=== PATIENT | female | born 1960 | race Caucasian/White ===

== ENCOUNTER 2018-03-31 05:59 | Emergency (ER) | payer BC ==
[2018-03-31 07:41] LABS: Absolute Lymphocytes (CBC) 0.8 K/uL (0.7-4.9); Absolute Monocytes 0.5 K/uL (0.1-1.3); Absolute Neutrophil 7.3 K/uL (1.8-8.0); Basophils % 0.4 % (0-1.3); Eosinophils % 0.5 % (0-4.4); Hematocrit 48.4 % (36.0-45.0); Lymphocytes % 9.2 % (15.3-44.8); MCH 28.8 pg (27.0-35.0); MCV 86.4 fL (80-100); MPV 9.4 fL (7.6-11.3); Monocytes % 5.9 % (3.3-12.3)
[2018-03-31] MEDS ORDERED: PROMETHAZINE 25 MG/ML VIAL ONE (07:45)
[2018-03-31] MEDS ORDERED: NA CHLORIDE 0.9% 1,000 ML ONE (07:45)
[2018-03-31 07:57] LABS: Albumin 3.9 g/dL (3.4-5.0); Bilirubin Direct 0.2 mg/dL (0-0.2); Bilirubin Total 0.6 mg/dL (0.2-1.0); Magnesium 2.1 mg/dL (1.8-2.4); Potassium 3.4 mmol/L (3.5-5.1); Protein, Total 7.6 g/dL (6.4-8.2)
[2018-03-31 08:11] LABS: Urine Blood 2+ (NEG); Urine Glucose 2+ (NEG); Urine Protein NEGATIVE (NEG); Urine pH 5.5 (5.0-7.0)
--- NOTE | 2018-03-31 09:30 | ER ---
Nurse's Notes [facility] Name: Yamile Laughlin Age: 58 yrs Sex: Female : 1960 Arrival Date: 03/31/2018 Time: 05:59 Bed 20 Private MD: Brittany Castro Diagnosis: Gastroenteritis Presentation: 03/31 06:16 Presenting complaint: Patient states: "I had teeth pulled on and ever since jd3 that Saturday after I have been having diarrhea, vomiting, and feeling very weak.". Transition of care: patient was not received from another setting of care. Onset of symptoms was March 28, 2018. Risk Assessment: Do you want to hurt yourself or someone else? Patient reports no desire to harm self or others. Initial Sepsis Screen: Does the patient meet any 2 criteria? No. Patient's initial sepsis screen is negative. Does the patient have a suspected source of infection? No. Patient's initial sepsis screen is negative. Care prior to arrival: Medication(s) given: Imodium at 0400. 06:16 Method Of Arrival: Wheelchair jd3 06:16 Acuity: NAVEEN 3 jd3 Historical: - Allergies: 06:25 Erythromycin; jd3 - Home Meds: 06:25 Jardiance oral oral [Active]; Metoprolol Tartrate Oral [Active]; jd3 - PMHx: 06:25 Diabetes - NIDDM; Hypertension; jd3 - PSHx: 06:25 Appendectomy; Cholecystectomy; ; Tonsillectomy; Hysterectomy; jd3 - Immunization history:: Adult Immunizations up to date, Flu vaccine is not up to date. - Social history:: Smoking status: Patient/guardian denies using tobacco. - Ebola Screening: : Patient negative for fever greater than or equal to 101.5 degrees Fahrenheit, and additional compatible Ebola Virus Disease symptoms. Screenin:29 Abuse screen: Denies threats or abuse. Nutritional screening: No deficits noted. jd3 Tuberculosis screening: No symptoms or risk factors identified. Fall Risk Ambulatory Aid- None/Bed Rest/Nurse Assist (0 pts). Gait- Weak (10 pts.). Mental Status- Oriented to own ability (0 pts). Total Soares Fall Scale indicates No Risk (0-24 pts). Assessment: 06:26 General: Appears in no apparent distress. uncomfortable, Behavior is calm, cooperative, jd3 appropriate for age. Pain: Denies pain. Neuro: Level of Consciousness is awake, alert, obeys commands, Oriented to person, place, time, situation, Appropriate for age Reports weakness. Cardiovascular: Capillary refill < 3 seconds Patient's skin is warm and dry. Respiratory: Airway is patent Respiratory effort is even, unlabored, Respiratory pattern is regular, symmetrical, Denies shortness of breath. GI: Abdomen is round non-distended, Last BM at 05:15. Bowel sounds present X 4 quads. Abd is soft Abdomen is tender to palpation in left upper quadrant Reports diarrhea, nausea, vomiting. : No signs and/or symptoms were reported regarding the genitourinary system. EENT: No signs and/or symptoms were reported regarding the EENT system. Derm: Skin is intact, Skin is dry, Skin is normal, Skin temperature is warm. Musculoskeletal: Circulation, motion, and sensation intact. Range of motion: intact in all extremities. 07:46 Reassessment: Patient appears in no apparent distress at this time. Patient and/or ch family updated on plan of care and expected duration. Pain level reassessed. Patient is alert, oriented x 3, equal unlabored respirations, skin warm/dry/pink. Patient states feeling better. Patient states symptoms have improved. General: Appears in no apparent distress. comfortable, Behavior is calm, cooperative, appropriate for age. Neuro: No deficits noted. Neuro: Reports dizziness, weakness. Respiratory: No deficits noted. Respiratory: Airway is patent Respiratory effort is even, unlabored, Breath sounds are clear bilaterally. 09:40 Reassessment: Patient appears in no apparent distress at this time. Patient and/or ch family updated on plan of care and expected duration. Pain level reassessed. Patient is alert, oriented x 3, equal unlabored respirations, skin warm/dry/pink. Patient states feeling better. Patient states symptoms have improved. Vital Signs: 06:26 BP 121 / 66; Pulse 81; Resp 17 S; Temp 98.3(O); Pulse Ox 97% on R/A; Weight 85.28 kg jd3 (R); Height 5 ft. 6 in. (167.64 cm) (R); Pain 0/10; 07:46 BP 109 / 67; Pulse 74; Resp 16; Temp 98.2; Pulse Ox 99% on R/A; Pain 0/10; ch 08:30 BP 111 / 74; Pulse 54; Resp 17; Pulse Ox 98% on R/A; dh3 09:29 BP 110 / 63; Pulse 56; Resp 18; Pulse Ox 97% on R/A; dh3 06:26 Body Mass Index 30.34 (85.28 kg, 167.64 cm) jd3 ED Course: 05:59 Patient arrived in ED. am2 06:00 Brittany Castro FNP-C is Private Physician. am2 06:12 [facility] jr8 06:12 Dheeraj Guardado MD is Attending Physician. jr8 06:16 Bulmaro Diamond, RN is Primary Nurse. jd3 06:18 Triage completed. jd3 06:26 Arm band placed on. jd3 06:29 Patient has correct armband on for positive identification. Bed in low position. Call j light in reach. Side rails up X 1. Adult w/ patient. 07:00 Report given to Ynes PRIETO. jd3 07:15 Initial lab(s) drawn, by ak, sent to lab. Inserted saline lock: 20 gauge in right 3 antecubital area, using aseptic technique. Blood collected. 07:44 Primary Nurse role handed off by Bulmaro Diamond, CONNER ch 07:44 Ynes Morales, CONNER is Primary Nurse. ch 07:46 Warm blanket given. ch 07:46 No provider procedures requiring assistance completed. ch 09:45 IV discontinued, intact, bleeding controlled, No redness/swelling at site. Pressure ch dressing applied. Administered Medications: 07:45 Drug: Phenergan 12.5 mg {Note: mixed in 1000mL ns bag.} Route: IVP; Infused Over: 20 ch mins; Site: right antecubital; 09:00 Follow up: Response: No adverse reaction; Marked relief of symptoms ch 07:46 Drug: NS 0.9% 1000 ml Route: IV; Rate: 1000 ml; Site: right antecubital; ch 09:00 Follow up: IV Status: Completed infusion; IV Intake: 1000ml ch Intake: 09:00 IV: 1000ml; Total: 1000ml. ch Outcome: :30 Discharge ordered by . jr8 09:45 Discharged to home ambulatory, with family. ch 09:45 Condition: improved 09:45 Discharge instructions given to patient, family, Instructed on discharge instructions, follow up and referral plans. medication usage, Demonstrated understanding of instructions, follow-up care, medications, Prescriptions given X 1. 09:55 Patient left the ED. Signatures: Ynes Morales, RN RN Edmundo Broussard PA PA 8 Hannah Langford on license of [facility] Jo-Ann Cope 3 Bulmaro Diamond RN RN jd3 Corrections: (The following items were deleted from the chart) 06:29 06:26 GI: Abdomen is round non-distended, Bowel sounds present X 4 quads. Abd is soft jd3 Abdomen is tender to palpation in left upper quadrant Reports diarrhea, nausea, vomiting, jd3 07:46 07:45 NS 0.9% 1000 ml IV at 1000 ml in left antecubital [facility]
--- NOTE | 2018-03-31 09:30 | EDPHYS ---
Physician Documentation [facility] Name: Yamile Laughlin Age: 58 yrs Sex: Female : 1960 Arrival Date: 03/31/2018 Time: 05:59 Bed 20 Private MD: Brittany Castro ED Physician Dheeraj Guardado HPI: 03/31 07:21 This 58 yrs old Female presents to ER via Wheelchair with complaints of jr8 General Weakness. 07:21 The patient presents to the emergency department with nausea, vomiting, diarrhea. jr8 Onset: The symptoms/episode began/occurred gradually, 4 day(s) ago. Possible causes: unknown. The symptoms are aggravated by food , The symptoms are alleviated by nothing. Associated signs and symptoms: Pertinent positives: near syncope feeling . Severity of symptoms: At their worst the symptoms were moderate in the emergency department the symptoms are unchanged. The patient has not experienced similar symptoms in the past. The patient has not recently seen a physician. Patient stated that she recently had dental work done and was on amoxicillin. Stated that for the past few days has had n/v/d. Had stopped but now has come back. Feels generally weak and wants to pass out. Has not had true syncopal episode . Historical: - Allergies: 06:25 Erythromycin; jd3 - Home Meds: 06:25 Jardiance oral oral [Active]; Metoprolol Tartrate Oral [Active]; jd3 - PMHx: 06:25 Diabetes - NIDDM; Hypertension; jd3 - PSHx: 06:25 Appendectomy; Cholecystectomy; ; Tonsillectomy; Hysterectomy; jd3 - Immunization history:: Adult Immunizations up to date, Flu vaccine is not up to date. - Social history:: Smoking status: Patient/guardian denies using tobacco. - Ebola Screening: : Patient negative for fever greater than or equal to 101.5 degrees Fahrenheit, and additional compatible Ebola Virus Disease symptoms. ROS: 07:21 Eyes: Negative for injury, pain, redness, and discharge, ENT: Negative for injury, jr8 pain, and discharge, Neck: Negative for injury, pain, and swelling, Cardiovascular: Negative for chest pain, palpitations, and edema, Respiratory: Negative for shortness of breath, cough, wheezing, and pleuritic chest pain, Back: Negative for injury and pain, MS/Extremity: Negative for injury and deformity, Skin: Negative for injury, rash, and discoloration. 07:21 Abdomen/GI: Positive for nausea, vomiting, and diarrhea, abdominal cramps, Negative for abdominal pain, abdominal distension, anorexia, dysphagia, hematemesis, black/tarry stool, rectal pain, rectal bleeding, bowel incontinence, flatulence. 07:21 Neuro: Positive for near syncope, Negative for altered mental status, dizziness, gait disturbance, headache, loss of consciousness, seizure activity, syncope. Exam: 07:21 Eyes: Pupils equal round and reactive to light, extra-ocular motions intact. Lids and jr8 lashes normal. Conjunctiva and sclera are non-icteric and not injected. Cornea within normal limits. Periorbital areas with no swelling, redness, or edema. ENT: Nares patent. No nasal discharge, no septal abnormalities noted. Tympanic membranes are normal and external auditory canals are clear. Oropharynx with no redness, swelling, or masses, exudates, or evidence of obstruction, uvula midline. Mucous membranes moist. Neck: Trachea midline, no thyromegaly or masses palpated, and no cervical lymphadenopathy. Supple, full range of motion without nuchal rigidity, or vertebral point tenderness. No Meningismus. Cardiovascular: Regular rate and rhythm with a normal S1 and S2. No gallops, murmurs, or rubs. Normal PMI, no JVD. No pulse deficits. Respiratory: Lungs have equal breath sounds bilaterally, clear to auscultation and percussion. No rales, rhonchi or wheezes noted. No increased work of breathing, no retractions or nasal flaring. Abdomen/GI: Soft, non-tender, with normal bowel sounds. No distension or tympany. No guarding or rebound. No evidence of tenderness throughout. Back: No spinal tenderness. No costovertebral tenderness. Full range of motion. Skin: Warm, dry with normal turgor. Normal color with no rashes, no lesions, and no evidence of cellulitis. MS/ Extremity: Pulses equal, no cyanosis. Neurovascular intact. Full, normal range of motion. Neuro: Awake and alert, GCS 15, oriented to person, place, time, and situation. Cranial nerves II-XII grossly intact. Motor strength 5/5 in all extremities. Sensory grossly intact. Cerebellar exam normal. Normal gait. Vital Signs: 06:26 BP 121 / 66; Pulse 81; Resp 17 S; Temp 98.3(O); Pulse Ox 97% on R/A; Weight 85.28 kg jd3 (R); Height 5 ft. 6 in. (167.64 cm) (R); Pain 0/10; 07:46 BP 109 / 67; Pulse 74; Resp 16; Temp 98.2; Pulse Ox 99% on R/A; Pain 0/10; ch 08:30 BP 111 / 74; Pulse 54; Resp 17; Pulse Ox 98% on R/A; dh3 09:29 BP 110 / 63; Pulse 56; Resp 18; Pulse Ox 97% on R/A; dh3 06:26 Body Mass Index 30.34 (85.28 kg, 167.64 cm) jd3 MDM: 06:12 Patient medically screened. 8 09:29 Differential diagnosis: gastritis, pancreatitis, viral gastroenteritis, jr8 gastroenteritis. Data reviewed: vital signs, nurses notes, lab test result(s). Data interpreted: Pulse oximetry: on room air is 99 %. Interpretation: normal. Counseling: I had a detailed discussion with the patient and/or guardian regarding: the historical points, exam findings, and any diagnostic results supporting the discharge/admit diagnosis, lab results, the need for outpatient follow up, a family practitioner, a invoice control clerk, to return to the emergency department if symptoms worsen or persist or if there are any questions or concerns that arise at home. Response to treatment: the patient's symptoms have markedly improved after treatment, patient is well hydrated. ED course: No longer feels like she wants to pass out. Nausea controlled. No pain . 03/31 06:29 Order name: Urine Dipstick--Ancillary (enter results); Complete Time: 08:41 ms 03/31 06:29 Order name: Urine --Ancillary (enter results); Complete Time: 08:41 ms 03/31 06:56 Order name: Basic Metabolic Panel [facility] 03/31 06:56 Order name: CBC with Diff 03/31 06:56 Order name: Creatinine for Radiology [facility] 03/31 06:56 Order name: Hepatic Function; Complete Time: 07:59 [facility] 03/31 06:56 Order name: Lipase; Complete Time: 07:59 [facility] 03/31 06:56 Order name: IV Saline Lock; Complete Time: 07:18 jr8 03/31 06:56 Order name: Magnesium; Complete Time: 07:59 jr8 03/31 06:57 Order name: Basic Metabolic Panel; Complete Time: 07:59 EDMS 03/31 06:57 Order name: CBC with Automated Diff; Complete Time: 07:45 EDMS 03/31 06:57 Order name: Creatinine (Radiology Only); Complete Time: 07:59 EDMS 03/31 06:56 Order name: Labs collected and sent; Complete Time: 07:17 jr8 03/31 06:56 Order name: Urine Dipstick-Ancillary (obtain specimen); Complete Time: 07:06 jr8 Administered Medications: 07:45 Drug: Phenergan 12.5 mg {Note: mixed in 1000mL ns bag.} Route: IVP; Infused Over: 20 ch mins; Site: right antecubital; 09:00 Follow up: Response: No adverse reaction; Marked relief of symptoms 07:46 Drug: NS 0.9% 1000 ml Route: IV; Rate: 1000 ml; Site: right antecubital; 09:00 Follow up: IV Status: Completed infusion; IV Intake: 1000ml ch Disposition: 03/31/18 09:30 Discharged to Home. Impression: Gastroenteritis. - Condition is Stable. - Discharge Instructions: Dehydration, Adult, Viral Gastroenteritis, Adult, Rehydration, Adult. - Prescriptions for promethazine 25 mg Oral Tablet - take 1 tablet by ORAL route every 6 hours As needed; 20 tablet. - Medication Reconciliation Form, Thank You Letter, Antibiotic Education, Prescription Opioid Use form. - Work release form (03/31/18 09:58). ss - Follow up: Private Physician; When: 1 - 2 days; Reason: Recheck today's complaints, Continuance of care, Re-evaluation by your physician. - Problem is new. - Symptoms have improved. Signatures: Dispatcher [employer] EDYnes Raymundo RN RN Edmundo Broussard PA PA jr8 Davies, Jonathon, RN RN jd3 Smirch, Shelby RN ss Corrections: (The following items were deleted from the chart) 09:55 09:30 03/31/2018 09:30 Discharged to Home. Impression: Gastroenteritis. Condition is ch Stable. Forms are Medication Reconciliation Form, Thank You Letter, Antibiotic Education, Prescription Opioid Use. Follow up: Private Physician; When: 1 - 2 days; Reason: Recheck today's complaints, Continuance of care, Re-evaluation by your physician. Problem is new. Symptoms have improved. jr8
== END 2018-03-31 09:55 | disposition home or self-care (01) ==
LOC: ER 05:59
DX: K52.9 Noninfective gastroenteritis and colitis, unspecified (principal); I10 Essential (primary) hypertension; E11.9 Type 2 diabetes mellitus without complications
CPT/HCPCS: 36415; 80048; 80076; 81003; 81025; 83690; 83735; 85025; 96361; 96374; 99284; J2550; J7030

== ENCOUNTER 2021-09-02 18:49 | Emergency (ER) | payer BC ==
--- OUTSIDE RECORDS SUMMARY | 2021-09-02 18:51 | XMS REPORT | Continuity of Care Document ---
:1960 Author Organization [facility] t Address [address] [place] [address] Dr. Brian. [address] [place] [id number] Care Team Providers Name Role Phone [place] Attending Clinician Unavailable Problems This patient has no known problems. Allergies, Adverse Reactions, Alerts This patient has no known allergies or adverse reactions. Medications This patient has no known medications. Procedures This patient has no known procedures. Encounters Start End Encounter Admission Attending Care Care Encounter Source Date/Time Date/Time Type Type Clinicians Facility Department ID 2021-07-26 Outpatient Matthew, [facility]LML[facility] [id number] [facility] 08[facility]43:03 [facility] 2021-08-29 2021-08-29 ambulatory [facility] [id number] [facility] 2021-08-18 2021-08-18 ambulatory [facility] [id number] [facility] 2021-08-17 2021-08-17 ambulatory [facility] [id number] [facility] 2021-07-26 2021-07-26 ambulatory [facility] [id number] [facility] Results This patient has no known results.
[2021-09-02] MEDS ORDERED: CYCLOBENZAPRINE 10 MG TAB ONE (19:12)
[2021-09-02] MEDS ORDERED: HYDROCODONE/APAP 10/325 TAB ONE (19:13)
[2021-09-02] MEDS ORDERED: LIDOCAINE 4% PATCH ONE (19:14)
--- NOTE | 2021-09-02 20:43 | RAD REPORT ---
EXAM DESCRIPTION: RAD - Lumbar Spine 3 Views - 09/02/2021 8:09 pm CLINICAL HISTORY: RADICULOPATHY COMPARISON: <Comparisons> FINDINGS: A three-view lumbar spine examination was performed. Lumbar bodies are normal in height. There is straightening of the usual lumbar lordosis. A slight rig ht lateral subluxation of L4 on L5 noted. L4-5 disc space narrowing seen with endplate spurring. L5-S 1 disc space is also narrowed. Mild endplate spurs seen at L3-4. No fracture or acute bony process se en. Moderately prominent facet degenerative change seen L2-S1. No pars defects identified. IMPRESSION: Lumbar spine degenerative changes are present most notable at L4-5. No acute finding identified. Concerns for disc herniation, central canal abnormality or occult bone process can be addressed with MR imaging.
--- NOTE | 2021-09-02 21:05 | ER ---
Nurse's Notes [facility] Name: Yamile Laughlin Age: 61 yrs Sex: Female : 1960 Arrival Date: 09/02/2021 Time: 18:50 Bed 4 Private MD: Brittany Castro Diagnosis: Lumbago with sciatica, right side Presentation: 09/02 19:03 Chief complaint: Patient states: low back pain that radiates to R groin, all the way ss down leg. HX of sciatica. Coronavirus screen: Client denies travel out of the [place] in the last 14 days. Ebola Screen: Patient denies exposure to infectious person. Patient denies travel to an Ebola-affected area in the 21 days before illness onset. Initial Sepsis Screen: Does the patient meet any 2 criteria? No. Patient's initial sepsis screen is negative. Does the patient have a suspected source of infection?. Risk Assessment: Do you want to hurt yourself or someone else? Patient reports no desire to harm self or others. Onset of symptoms was September 01, 2021. 19:03 Method Of Arrival: Wheelchair ss 19:03 Acuity: NAVEEN 3 ss Historical: - Allergies: 19:05 Erythromycin; ss - Home Meds: 21:27 Jardiance Oral [Active]; Metoprolol Tartrate Oral [Active]; lg3 - PMHx: 19:05 Diabetes - NIDDM; Hypertension; sciatica; ss - Immunization history:: Client reports having NOT received the Covid vaccine. - Social history:: Smoking status: Patient denies any tobacco usage or history of. Screenin:22 Abuse screen: Denies threats or abuse. Denies injuries from another. Nutritional lg3 screening: No deficits noted. Tuberculosis screening: No symptoms or risk factors identified. Fall Risk None identified. Assessment: 19:22 General: Appears in no apparent distress. uncomfortable, Behavior is calm, cooperative. lg3 Pain: Complains of pain in lumbar area and right low back Pain radiates to right leg. Neuro: No deficits noted. Level of Consciousness is awake, alert, obeys commands, Oriented to person, place, time, situation. Cardiovascular: No deficits noted. Denies chest pain, shortness of breath, Capillary refill < 3 seconds Clubbing of nail beds is absent JVD is absent Patient's skin is warm and dry. Respiratory: No deficits noted. Airway is patent Trachea midline Respiratory effort is even, unlabored. GI: No deficits noted. No signs and/or symptoms were reported involving the gastrointestinal system. Abdomen is round non-distended. : No deficits noted. No signs and/or symptoms were reported regarding the genitourinary system. EENT: No deficits noted. No signs and/or symptoms were reported regarding the EENT system. Derm: No deficits noted. No signs and/or symptoms reported regarding the dermatologic system. Skin is intact, is healthy with good turgor, Skin is dry. Musculoskeletal: Circulation, motion, and sensation intact. Range of motion: intact in all extremities, Reports weakness in left leg pain in lumbar area and right low back. 21:24 Reassessment: Patient appears in no apparent distress at this time. No changes from lg3 previously documented assessment. Patient and/or family updated on plan of care and expected duration. Pain level reassessed. Patient is alert, oriented x 3, equal unlabored respirations, skin warm/dry/pink. Patient states feeling better. Patient states symptoms have improved. Vital Signs: 19:03 BP 141 / 80; Pulse 75; Resp 16; Pulse Ox 95% ; Weight 90.72 kg; Height 5 ft. 6 in. ss (167.64 cm); Pain 9/10; 19:06 Temp 98.5(O); oe 19:22 BP 122 / 73; Pulse 58; Resp 17 S; Pulse Ox 98% on R/A; lg3 20:21 BP 126 / 76; Pulse 53; Resp 16 S; Pulse Ox 99% on R/A; lg3 21:26 BP 111 / 73; Pulse 50; Resp 16; Pulse Ox 98% on R/A; lg3 19:03 Body Mass Index 32.28 (90.72 kg, 167.64 cm) ED Course: 18:50 Patient arrived in ED. am2 18:50 Brittany Castro FNP-C is Private Physician. am2 18:56 Osvaldo Garcia NP is PHCP. pm1 18:56 Aquiles Martinez MD is Attending Physician. pm1 19:05 Triage completed. ss 19:05 Arm band placed on right wrist. ss 19:21 Oliva Cárdenas, CONNER is Primary Nurse. lg3 19:22 Patient has correct armband on for positive identification. Bed in low position. Call lg3 light in reach. Side rails up X 1. Pulse ox on. NIBP on. Door closed. Noise minimized. Warm blanket given. 20:11 XRAY Lumbar Spine (3 Views) In Process Unspecified. EDMS 21:26 No provider procedures requiring assistance completed. Patient did not have IV access lg3 during this emergency room visit. Administered Medications: 19:21 Drug: [place] (HYDROcodone-acetaminophen) 10 mg-325 mg 1 tabs Route: PO; lg3 19:22 Follow up: Response: No adverse reaction; RASS: Alert and Calm (0) lg3 19:21 Drug: Flexeril (cyclobenzaprine) 10 mg Route: PO; lg3 19:21 Follow up: Response: No adverse reaction lg3 20:08 Drug: Lidoderm Patch 5 % (700 mg/patch) 1 patches Route: Topical; Site: affected area; ke1 21:13 Not Given (Physician Discretion): Valium (diazepam) 2 mg PO once pm1 21:24 Drug: Ketorolac 60 mg Route: IM; Site: left gluteus; lg3 21:24 Follow up: Response: No adverse reaction lg3 21:24 Drug: Valium (diazepam) 2.5 mg Route: PO; lg3 21:24 Follow up: Response: No adverse reaction lg3 Outcome: 21:04 Discharge ordered by MD. pm1 21:34 Discharged to home via wheelchair, with significant other. lg3 21:34 Condition: stable 21:34 Discharge instructions given to patient, Instructed on discharge instructions, follow up and referral plans. medication usage, Prescriptions given X 2. 21:42 Patient left the ED. lg3 Signatures: Dispatcher [employer] EDMS Xiomara Rosado RN RN ss Osvaldo Garcia, [employer] pm1 Guru Curran Amanda am2 Oliva Cárdenas RN RN lg3 Bertha Vigil RN RN ke1 Corrections: (The following items were deleted from the chart) 21:26 20:21 BP 126 / 76; Pulse 93bpm; Resp 16bpm; Spontaneous; Pulse Ox 99% RA; lg3 lg3
--- NOTE | 2021-09-02 21:05 | EDPHYS ---
Physician Documentation [facility] Name: Yamile Laughlin Age: 61 yrs Sex: Female : 1960 Arrival Date: 09/02/2021 Time: 18:50 Bed 4 Private MD: Brittany Castro ED Physician Aquiles Martinez HPI: 09/02 19:29 This 61 yrs old Female presents to ER via Wheelchair with complaints of Back Pain. pm1 19:29 The patient presents with pain that is acute, with no known mechanism of injury. The pm1 symptoms are located in the low back. Onset: The symptoms/episode began/occurred yesterday. The pain radiates to the right leg. Associated signs and symptoms: Pertinent negatives: dysuria, numbness, tingling, weakness. The problem was sustained History of sciatica for at least the past 10 years. Reports issue with L4-L5 in the past according to imaging greater than 10 years ago . Modifying factors: The patient symptoms are alleviated by nothing, the patient symptoms are aggravated by any movement. Severity of symptoms: in the emergency department the symptoms are actually worse. The patient has experienced similar episodes in the past, multiple times. The patient has not recently seen a physician. Historical: - Allergies: 19:05 Erythromycin; ss - Home Meds: 21:27 Jardiance Oral [Active]; Metoprolol Tartrate Oral [Active]; lg3 - PMHx: 19:05 Diabetes - NIDDM; Hypertension; sciatica; ss - Immunization history:: Client reports having NOT received the Covid vaccine. - Social history:: Smoking status: Patient denies any tobacco usage or history of. ROS: 19:29 Constitutional: Negative for fever, chills, and weight loss. pm1 19:29 Cardiovascular: Negative for chest pain, palpitations, and edema, Respiratory: Negative for shortness of breath, cough, wheezing, and pleuritic chest pain, Abdomen/GI: Negative for abdominal pain, nausea, vomiting, diarrhea, and constipation. 19:29 : Negative for injury, bleeding, discharge, and swelling, MS/Extremity: Negative for injury and deformity, Skin: Negative for injury, rash, and discoloration. 19:29 Neuro: Negative for headache, weakness, numbness, tingling, and seizure. 19:29 Back: Positive for of the right low back. 19:29 All other systems are negative. Exam: 19:29 Constitutional: This is a well developed, well nourished patient who is awake, alert, pm1 and in no acute distress. Head/Face: Normocephalic, atraumatic. 19:29 Skin: Warm, dry with normal turgor. Normal color with no rashes, no lesions, and no evidence of cellulitis. MS/ Extremity: Pulses equal, no cyanosis. Neurovascular intact. Full, normal range of motion. 19:29 Eyes: Exam is negative for acute changes, Periorbital structures: appear normal, Extraocular movements: no acute changes, Conjunctiva: no acute changes, no injection. 19:29 ENT: Exam is negative for acute changes, Mouth: no acute changes, Lips: normal, moist, Oral mucosa: normal, pink and intact, moist. 19:29 Cardiovascular: Exam negative for Rate: normal, Rhythm: regular, Pulses: no pulse deficits are appreciated. 19:29 Respiratory: Exam negative for acute changes, respiratory distress, shortness of breath. 19:29 Back: pain, that is mild, of the right low back, vertebral tenderness, is not appreciated. 19:29 Neuro: Exam negative for acute changes, Orientation: is normal, Mentation: is normal, Motor: is normal, moves all fours. Vital Signs: 19:03 BP 141 / 80; Pulse 75; Resp 16; Pulse Ox 95% ; Weight 90.72 kg; Height 5 ft. 6 in. ss (167.64 cm); Pain 9/10; 19:06 Temp 98.5(O); oe 19:22 BP 122 / 73; Pulse 58; Resp 17 S; Pulse Ox 98% on R/A; lg3 20:21 BP 126 / 76; Pulse 53; Resp 16 S; Pulse Ox 99% on R/A; lg3 21:26 BP 111 / 73; Pulse 50; Resp 16; Pulse Ox 98% on R/A; lg3 19:03 Body Mass Index 32.28 (90.72 kg, 167.64 cm) ss MDM: 18:57 Patient medically screened. pm1 19:34 Data reviewed: vital signs. Data interpreted: Pulse oximetry: on room air is 98 %. pm1 Interpretation: normal. 21:03 Counseling: I had a detailed discussion with the patient and/or guardian regarding: the pm1 historical points, exam findings, and any diagnostic results supporting the discharge/admit diagnosis, radiology results, the need for outpatient follow up, to return to the emergency department if symptoms worsen or persist or if there are any questions or concerns that arise at home. 09/02 19:02 Order name: XRAY Lumbar Spine (3 Views); Complete Time: 20:47 pm1 Administered Medications: 19:21 Drug: [place] (HYDROcodone-acetaminophen) 10 mg-325 mg 1 tabs Route: PO; lg3 19:22 Follow up: Response: No adverse reaction; RASS: Alert and Calm (0) lg3 19:21 Drug: Flexeril (cyclobenzaprine) 10 mg Route: PO; lg3 19:21 Follow up: Response: No adverse reaction lg3 20:08 Drug: Lidoderm Patch 5 % (700 mg/patch) 1 patches Route: Topical; Site: affected area; ke1 21:13 Not Given (Physician Discretion): Valium (diazepam) 2 mg PO once pm1 21:24 Drug: Ketorolac 60 mg Route: IM; Site: left gluteus; lg3 21:24 Follow up: Response: No adverse reaction lg3 21:24 Drug: Valium (diazepam) 2.5 mg Route: PO; lg3 21:24 Follow up: Response: No adverse reaction lg3 Disposition: 09/03 10:50 Co-signature as Attending Physician, Aquiles Martinez MD. rn Disposition Summary: 09/02/21 21:04 Discharge Ordered Location: Home pm1 Problem: new pm1 Symptoms: have improved pm1 Condition: Stable pm1 Diagnosis - Lumbago with sciatica, right side pm1 Followup: pm1 - With: Emergency Department - When: As needed - Reason: Worsening of condition Followup: pm1 - With: Private Physician - When: 2 - 3 days - Reason: Recheck today's complaints, Continuance of care, Re-evaluation by your physician Discharge Instructions: - Discharge Summary Sheet pm1 - Sciatica pm1 Forms: - Medication Reconciliation Form pm1 - Thank You Letter pm1 - Antibiotic Education pm1 - Prescription Opioid Use pm1 Prescriptions: - Skelaxin 800 mg Oral Tablet - take 1 tablet by ORAL route every 8 hours As needed; 30 tablet; Refills: 0, pm1 Product Selection Permitted - Tylenol-Codeine #3 300 mg-30 mg Oral - take 2 tablet by ORAL route every 6 hours As needed; 20 tablet; Refills: 0, pm1 Product Selection Permitted Signatures: Dispatcher [employer] Aquiles Forde MD MD rn Smirch, Shelby RN RN ss Osvaldo Garcai, ACCOUNTING BOOKKEEPER ACCOUNTING BOOKKEEPER pm1 Oliva Cárdenas RN RN lg3 Bertha Vigil RN RN ke1
[2021-09-02] MEDS ORDERED: DIAZEPAM 5 MG TABLET ONE (21:18)
[2021-09-02] MEDS ORDERED: KETOROLAC 30 MG/ML INJ ONE (21:19)
[2021-09-02 21:49] VITALS: TEMP 98.5
[2021-09-02 21:53] VITALS: BP 111/73; O2SAT 98
== END 2021-09-02 21:42 | disposition home or self-care (01) ==
LOC: ER 18:49
DX: M54.31 Sciatica, right side (principal); E11.9 Type 2 diabetes mellitus without complications; I10 Essential (primary) hypertension; Z88.3 Allergy status to other anti-infective agents
CPT/HCPCS: 72100; 96372; 99284

== ENCOUNTER 2022-02-12 11:57 | Emergency (ER) | payer OTHER, BC ==
--- OUTSIDE RECORDS SUMMARY | 2022-02-12 12:00 | XMS REPORT | Continuity of Care Document ---
:1960 Author Organization [facility] t Address [address] [place] [address] Dr. Brian. [address] [place] [id number] Care Team Providers Name Role Phone Asked, No Pcp Primary Care Physician Unavailable Brittany Castro Attending Clinician Unavailable Nel DOMINGUEZ, Favio Ford Attending Clinician Payers Payer Name Policy Type Policy Number Effective Date Expiration Date S ource Problems Condition Condition Condition Status Onset Resolution Last Treating Co mments Source Name Details Category Date Date Treatment Clinician Date No known No known Disease Metho di active active st problems problems Hospit a l Allergies, Adverse Reactions, Alerts Allergy Allergy Status Severity Reaction(s) Onset Inactive Treating Comm ents Source Name Type Date Date Clinician Erythrom Propensi Active Other (See Me thodi ycin ty to Comments) 09-03 adverse 00:00: Hospita reaction 00 l s to drug Metformi Propensi Active Other (See Me thodi n Hcl ty to Comments) 09-03 adverse 00:00: Hospita reaction 00 l s to drug Sitaglip Propensi Active Other (See Me thodi tin ty to Comments) 09-03 adverse 00:00: Hospita reaction 00 l s to drug Statins- Propensi Active Other (See Me thodi Hmg-Coa ty to Comments) 09-03 Reductas adverse 00:00: Hospita e reaction 00 l Inhibito s to rs drug Cortison Propensi Active Other (See Me thodi e ty to Comments) 403 st adverse 00:00: Hospita reaction 00 l s to drug Family History Family Member Diagnosis Comments Start Date Stop Date Source Natural brother Diabetes [facility] Natural brother Heart attack [facility] Natural brother Heart [facility] Natural father Cancer [facility] Natural father Diabetes [facility] Natural father Stroke [facility] Maternal aunt Heart attack [facility] Maternal aunt Heart disease [facility] Maternal grandfather [facility] Maternal grandfather Heart disease [facility] Natural mother Heart attack [facility] Natural mother Heart disease [facility] Paternal grandfather Diabetes [facility] Paternal grandmother Stroke [facility] sister Diabetes [facility] Social History Social Habit Start Date Stop Date Quantity Comments Source Tobacco use and 2021-09-06 2021-09-06 Smokeless tobacco [facility] exposure 00:00:00 00:00:00 non-user Hospital Alcohol intake 2021-09-06 2021-09-06 Ex-drinker [facility] 00:00:00 00:00:00 (finding) Hospital Sex Assigned At [birth year] F [facility] 00:00:00 00:00:00 Hospital Smoking Status Start Date Stop Date Source Never smoked tobacco [facility] ospital Medications Ordered Filled Start Stop Current Ordering Indication Dosage Frequency Signature Comments Components Source Medication Medication Date Date Medication? Clinician (SIG) Name Name metaxalone Yes TAKE 1 Metho di (SKELAXIN) 6-22 TABLET(800 st 800 MG 00:00: MG) BY Hospita tablet 00 MOUTH l THREE TIMES DAILY tiZANidine 2021- No 1{tbl} Q.5D Take 1 Me thodi (ZANAFLEX) -18 05-[address] 2 MG tablet 19:44: 00:00 mouth 2 Ho spita 04 :00 (two) l times a day. metaxalone No 800mg Q8H Take 1 Met [facility] (SKELAXIN) 5-18 06-[address] 800 MG 00:00: 00:00 (800 mg Hospita tablet 00 :00 total) by l mouth every 8 (eight) hours as needed for muscle spasms. meloxicam 2022- No 7.5mg QD Take 1 Meth lupe (Mobic) 7.5 09-[address] mg tablet 00:00: 04:59 (7.5 mg Hosp sulema 00 :00 total) by l mouth daily. metaxalone 2021- No 800mg Q.[id number] Take 1 [facility] (SKELAXIN) 09-11- [id number] tablet st 800 MG 00:00: 04:59 3D (800 mg Hospita tablet 00 :00 total) by l mouth 3 (three) times a day for 30 days. conjugated Yes take as Meth lupe estrogens 4-[address] (Premarin) 07:57: Hospita 0.625 54 l mg/gram vaginal cream metoprolol Yes 1{tbl} QD Take 1 Met hodi succinate - tablet by st XL 07:57: mouth Hospita (TOPROL-XL) 54 daily. l 50 mg 24 hr tablet gabapentin 2022- No 300mg Q.[id number] Take 1 [facility] (NEURONTIN) 09-05- [id number] capsule st 300 mg 00:00: 04:59 3D (300 mg Hospita capsule 00 :00 total) by l mouth 3 (three) times a day. keTOROlac Yes [facility] (TORadol) 4-04 st 10 mg 00:00: Hospita tablet 00 l acetaminoph Yes 2{tbl} Q6H Take 2 Me [facility] en-codeine 4-[address] (TYLENOL 00:00: mouth Hospita WITH 00 every 6 l CODEINE #3) (six) 300-30 mg hours as per tablet needed. metaxalone 2021- No 800mg Q8H Take 800 M [facility]i (SKELAXIN) 4-03 05-[address] 800 MG 00:00: 00:00 mouth Hospita tablet 00 :00 every 8 l (eight) hours as needed. Ozempic 1 Yes INJECT 1 Meth lupe mg/dose (4 2-[address] mg/3 mL) 00:00: THE SKIN Hospi ta subcutaneou 00 WEEKLY 90 l s pen linaGLIPtin 2019- Yes 1{tbl} QD Take 1 Me [facility] (Tradjenta) 0-[address] 5 mg tablet 00:00: mouth Hospi ta 00 daily. l albuterol 2018-0 Yes 3 ml as Metho di (ACCUNEB) 3-[address] 2.5 mg /3 00:00: Hospita mL (0.083 00 l %) nebulizer solution Procedures Procedure Date / Time Performed Performing Clinician Sour e XR SPINE EXTERNAL STUDY 2021-09-03 00:58:55 Favio Neumann [facility] Plan of Care Planned Activity Planned Date Details Comments Source Future Scheduled 2022-02-06 HEPATITIS B VACCINES [facility] Test 08:49:37 (1 of 3 - 3-dose series) [code = HEPATITIS B VACCINES (1 of 3 - 3-dose series)] Future Scheduled 2022-02-06 COVID-19 VACCINE (#1) [facility] Test 08:49:37 [code = COVID-19 VACCINE (#1)] Future Scheduled 2022-02-06 Hepatitis C screening [facility] Test 08:49:37 (procedure) [code = 762680414] Future Scheduled 2022-02-06 Screening for [facility] Test 08:49:37 malignant neoplasm of cervix (procedure) [code = 403108522] Future Scheduled 2022-02-06 BREAST CANCER [facility] Test 08:49:37 SCREENING [code = BREAST CANCER SCREENING] Future Scheduled 2022-02-06 COLONOSCOPY SCREENING [facility] Test 08:49:37 [code = COLONOSCOPY SCREENING] Future Scheduled 2022-02-06 SHINGLES VACCINES (1 [facility] Test 08:49:37 of 2) [code = SHINGLES VACCINES (1 of 2)] Future Scheduled 2022-02-06 INFLUENZA VACCINE [facility] Test 08:49:37 [code = INFLUENZA VACCINE] Encounters Start End Encounter Admission Attending Care Care Encounter Source Date/Time Date/Time Type Type Clinicians Facility Department ID 2022-01-22 Outpatient Matthew [facility] [id number] Common 08:55:01 Brittany [facility] 2021-12-27 Outpatient [place], STLMLC STLMLC [id number] Common 12:36:01 Brittany [facility] 2021-10-23 Outpatient [place], STLMLC STLMLC [id number] Common 10:41:07 Brittany [facility] 2021-07-26 Outpatient [place], STLMLC STLMLC [id number] Common 08:43:03 Brittany [facility] 2022-01-24 2022-01-24 ambulatory STLMLC STLMLC [id number] Common 00:00:00 00:00:00 [facility] 2021-11-22 2021-11-22 Cisco Neumann 1.2.840.1 [id number] Methodi 00:00:00 00:00:[address] 3.430.2.7 Hospit a .3.645771 l .8 2021-11-01 2021-11-01 ambulatory STLMLC STLMLC [id number] Common 00:00:00 00:00:00 [facility] 2021-10-30 2021-10-30 ambulatory STLMLC STLMLC [id number] Common 00:00:00 00:00:00 [facility] 2021-10-25 2021-10-25 ambulatory STLMLC STLMLC [id number] Common 00:00:00 00:00:00 [facility] 2021-10-18 2021-10-18 Sergio Neumann 1.2.840.1 [id number] [facility] 00:00:00 00:00:00 Only Fvaio Lama.1.[address] 3.430.2.7 Hospit a .3.447717 l .8 2021-09-11 2021-09-11 Sergio Neumann 1.2.840.1 [id number] [facility] 00:00:00 00:00:00 Only Favio Caballero50.1.[address] 3.430.2.7 Hospit a .3.921100 l .8 2021-09-08 2021-09-08 ambulatory STLMLC STLMLC [id number] Common 00:00:00 00:00:00 [facility] 2021-09-05 2021-09-05 Hospital 1.2.840.1 [id number] [facility] 09:59:38 23:59:[id number] 3.430.2.7 Hospit a .3.838164 l .8 2021-09-05 2021-09-05 Office Nel, 1.2.840.1 [id number] [facility] 10:00:00 10:26:20 Visit Favio Caballero50.1.[address] 3.430.2.7 Hospit a .3.872989 l .8 2021-09-05 2021-09-05 Outpatient [facility] [id number] 00:00:00 00:00:[address] 2021-09-05 2021-09-05 Outpatient [facility] [id number] [address] [place] [address] 00:00:00 00:00:[address] 2021-09-05 2021-09-05 Orders [facility], 1.2.840.1 [id number] Methodi 00:00:00 00:00:00 Only Favio Ford 65856.1.[address] 3.430.2.7 Hospit a .3.690567 l .8 2021-09-04 2021-09-04 ambulatory STLMLC STLMLC [id number] Common 00:00:00 00:00:00 [facility] 2021-09-04 2021-09-04 Travel 1.2.840.1 [id number] [id number] [facility] 00:00:00 00:00:[address] 3.430.2.7 0.2.7.3.698 Ho spita .3.050630 084.8 l .8 2021-08-29 2021-08-29 ambulatory STLMLC STLMLC [id number] Common 00:00:00 00:00:00 [facility] 2021-08-18 2021-08-18 ambulatory STLMLC STLMLC [id number] Common 00:00:00 00:00:00 [facility] 2021-08-17 2021-08-17 ambulatory STLMLC STLMLC [id number] Common 00:00:00 00:00:00 [facility] 2021-07-26 2021-07-26 ambulatory STLMLC STLMLC [id number] Common 00:00:00 00:00:00 [facility] Results This patient has no known results.
[2022-02-12] MEDS ORDERED: IBUPROFEN 400 MG TAB ONE (12:51)
[2022-02-12] MEDS ORDERED: CYCLOBENZAPRINE 10 MG TAB ONE (12:51)
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
[2022-02-12] MEDS ORDERED: HYDROCODONE/APAP 10/325 TAB ONE (14:38)
[2022-02-12] MEDS ORDERED: ACETAMINOPHEN 500 MG TAB ONE (14:38)
[2022-02-12 14:52] VITALS: BP 122/76; TEMP 98.2; O2SAT 100
== END 2022-02-12 14:34 | disposition home or self-care (01) ==
LOC: ER 11:57
DX: M54.2 Cervicalgia (principal); M54.6 Pain in thoracic spine; V49.50XA Passenger injured in collision with unspecified motor vehicles in traffic accident, initial encounter; Z88.3 Allergy status to other anti-infective agents; E11.9 Type 2 diabetes mellitus without complications; I10 Essential (primary) hypertension
CPT/HCPCS: 72125; 72128; 99284